=== PATIENT | female | born 1970 | race Caucasian/White ===

== ENCOUNTER 2017-04-02 20:04 | Observation (INO) | payer BC ==
[~2017-04-02] VITALS: Ht 160 cm; Wt 60.5 kg
[~2017-04-02 20:04] MED LIST: AZIT250T94 PO
[2017-04-02 20:14] VITALS: Ht 160 cm; Wt 60.5 kg
[2017-04-02] MEDS ORDERED: FER325 PO (22:24)
[2017-04-02] MEDS ORDERED: MULTI PO (22:24)
[2017-04-02] MEDS ORDERED: CYAN50TA PO (22:25)
[2017-04-02 22:31] LABS: ADD SCAN DIFF NO
[2017-04-02 22:33] LABS: BASOPHILS % 0.2 % (0.0-2.0); EOSINOPHILS # 0.1 10^3/ul (0.0-0.5); EOSINOPHILS % 0.7 % (0.0-7.0); HEMATOCRIT 39.9 % (37.0-47.0); HEMOGLOBIN 12.8 g/dl (12.0-16.0); LYMPHOCYTES # 3.1 10^3/ul (0.8-2.9); LYMPHOCYTES % 32.7 % (15.0-51.0); MEAN CORPUSCULAR HEMOGLOBIN 29.1 pg (29.0-33.0); MEAN CORPUSCULAR HGB CONC 32.1 g/dl (32.0-37.0); MEAN CORPUSCULAR VOLUME 90.7 fl (82.0-101.0); MEAN PLATELET VOLUME 9.8 fl (7.4-10.4); MONOCYTE # 0.7 10^3/ul (0.3-0.9); NEUTROPHIL # 5.7 10^3/ul (1.6-7.5); NEUTROPHILS % 59.1 % (39.0-77.0); PLATELET COUNT 399 10^3/UL (140-415); RED CELL DISTRIBUTION WIDTH 13.8 % (11.5-14.5); WHITE BLOOD COUNT 9.6 10^3/ul (4.8-10.8)
[2017-04-02 22:46] LABS: INR 0.93; PROTIME 12.5 Sec (12.2-14.2)
[2017-04-02 22:47] LABS: PARTIAL THROMBOPLASTIN TIME 28.1 Sec (25.0-35.0)
[2017-04-02 22:52] LABS: ALBUMIN 4.5 g/dl (3.3-4.9); CHLORIDE 100 mmol/L (97-110); POTASSIUM 3.4 mmol/L (3.5-5.1); SODIUM 138 mmol/L (135-144)
[2017-04-02 22:54] LABS: CREATININE 0.79 mg/dl (0.44-1.00)
[2017-04-02 22:55] LABS: ALANINE AMINOTRANSFERASE 30 IU/L (13-69); ALBUMIN/GLOBULIN RATIO 1.28; ALKALINE PHOSPHATASE 78 IU/L (42-121); ANION GAP 14 (8-16); ASPARTATE AMINO TRANSFERASE 29 IU/L (15-46); BILIRUBIN,INDIRECT 0.5 mg/dl (0-1.1); BILIRUBIN,TOTAL 0.5 mg/dl (0.2-1.3); BLOOD UREA NITROGEN 11 mg/dl (7-20); CARBON DIOXIDE 27 mmol/L (21-31); GLUCOSE 97 mg/dl (70-220)
[2017-04-02 23:04] LABS: B-TYPE NATRIURETIC PEPTIDE 67 PG/ML (0-125)
[2017-04-02 23:08] LABS: TROPONIN-I < 0.012 ng/ml (0.00-0.12)
[2017-04-03] VITALS (9 sets, daily range): BP systolic 107–134; BP diastolic 56–76; PULSE 58–77; RESP 12–18; TEMP 98.7
--- NOTE | 2017-04-03 00:32 | RADRPT ---
PROCEDURE: Portable chest x-ray. CLINICAL INDICATION: Chest pain. TECHNIQUE: Portable AP view of the chest. COMPARISON: 08/31/2016. FINDINGS: No pulmonary edema or conolidation is identified. The cardiac silhouette is magnified. No pleural effusion is seen. There is no pneumothorax. IMPRESSION: 1. No evidence of acute cardiopulmonary disease. RPTAT: HTAR .Rudy Yarbrough MD, MD Date Time Electronically viewed and signed by .Rudy Yarbrough MD, on 04/03/2017 00:32 .R/
--- NOTE | 2017-04-03 00:52 | ERA ---
ER Documentation Chief Complaint Date/Time DATE: 04/03/17 TIME: 00:51 Chief Complaint chest pain x 3 weeks HPI This a 47 reveals a chest pain over the past 2-3 weeks. It got bad today with some numbness and tingling in her left arm. No fevers no chills. No anxiety. No palpitations. No other current complaints. Pain is mild to moderate intensity, pressure-like with electric-like sensations on her left arm. ROS All systems reviewed and are negative except as per history of present illness. Medications Home Meds Reported Medications Cyanocobalamin* (Vitamin B-12*) 50 Mcg Tablet, 50 MCG PO DAILY, TAB 04/02/17 Ferrous Sulfate* (Ferrous Sulfate*) 325 Mg Tabec, 325 MG PO DAILY, TAB 04/02/17 Multivitamins* (Theragran*) 1 Tab Tab, 1 TAB PO DAILY, TAB 04/02/17 Discontinued Scripts Azithromycin* (Zithromax*) 250 Mg Tablet, 250 MG PO .ZPACK DIRECTED, #6 TAB TAKE 500 MG (2 TABS) THE FIRST DAY THEN 250 MG (1 TAB) DAYS 2-5 Prov:GEOFFREY PRAJAPATI PA-C 08/31/16 Allergies Allergies: Coded Allergies: morphine (Verified Allergy, Unknown, 04/02/17) PMhx/Soc History of Surgery: No Anesthesia Reaction: No Hx Neurological Disorder: No Hx Respiratory Disorders: No Hx Cardiac Disorders: No Hx Psychiatric Problems: No Hx Miscellaneous Medical Probl: No Hx Alcohol Use: No Hx Substance Use: No Hx Tobacco Use: No Smoking Status: Never smoker Physical Exam Vitals Vital Signs Date Time Temp Pulse Resp B/P Pulse Ox O2 Delivery O2 Flow Rate FiO2 04/02/17 23:59 70 13 150/76 100 Nasal Cannula 2.0 04/02/17 22:38 Nasal Cannula 2 04/02/17 22:13 98.7 64 12 135/76 100 Room Air 04/02/17 20:14 99.2 77 20 135/79 99 Physical Exam Const: [] Head: Atraumatic Eyes: Normal Conjunctiva ENT: Normal External Ears, Nose and Mouth. Neck: Full range of motion..~ No meningismus. Resp: Clear to auscultation bilaterally Cardio: Regular rate and rhythm, no murmurs Abd: Soft, non tender, non distended. Normal bowel sounds Skin: No petechiae or rashes Back: No midline or flank tenderness Ext: No cyanosis, or edema Neur: Awake and alert Psych: Normal Mood and Affect Result Diagram: 04/02/17219904/02/172199 Results 24 hrs Laboratory Tests Test 04/02/17 22:00 White Blood Count 9.610^3/ul Red Blood Count 4.4010^6/ul Hemoglobin 12.8g/dl Hematocrit 39.9% Mean Corpuscular Volume 90.7fl Mean Corpuscular Hemoglobin 29.1pg Mean Corpuscular Hemoglobin Concent 32.1g/dl Red Cell Distribution Width 13.8% Platelet Count 06205^3/UL Mean Platelet Volume 9.8fl Neutrophils % 59.1% Lymphocytes % 32.7% Monocytes % 7.0% Eosinophils % 0.7% Basophils % 0.2% Nucleated Red Blood Cells % 0.0/100WBC Neutrophils # 5.710^3/ul Lymphocytes # 3.110^3/ul Monocytes # 0.710^3/ul Eosinophils # 0.110^3/ul Basophils # 0.010^3/ul Nucleated Red Blood Cells # 0.010^3/ul Prothrombin Time 12.5Sec Prothrombin Time Ratio 1.0 INR International Normalized Ratio 0.93 Activated Partial Thromboplast Time 28.1Sec Sodium Level 138mmol/L Potassium Level 3.4mmol/L Chloride Level 100mmol/L Carbon Dioxide Level 27mmol/L Anion Gap 14 Blood Urea Nitrogen 11mg/dl Creatinine 0.79mg/dl Glucose Level 97mg/dl Calcium Level 9.0mg/dl Total Bilirubin 0.5mg/dl Direct Bilirubin 0.00mg/dl Indirect Bilirubin 0.5mg/dl Aspartate Amino Transf (AST/SGOT) 29IU/L Alanine Aminotransferase (ALT/SGPT) 30IU/L Alkaline Phosphatase 78IU/L Troponin I < 0.012ng/ml B-Type Natriuretic Peptide 67PG/ML Total Protein 8.0g/dl Albumin 4.5g/dl Globulin 3.50g/dl Albumin/Globulin Ratio 1.28 Procedures/MDM EKG: Rate/Rhythm: [Normal Sinus Rhythm] QRS, ST, T-waves: [No changes consistent w/ acute ischemia] Impression: [No evidence of ischemia or arrhythmia] Chest X-ray 1V Interpreted by me: Soft Tissue: No acute abnormalities Bones: No acute abnormalities Mediastinum/Cardiac Silhouette/Lungs: [No acute abnormalities] Patient's symptoms are concerning for cardiac cause will require inpatient workup and continuous monitoring. Further w/u for ischemia, arrhythmia, PE or dissection will be deferred to the inpatient team. Accepting Care Team: Current data and ongoing care discussed. Time: 1 AM Primary Provider: Hospitalist Consulting: [XOXOXO] Outstanding Data: none Departure Diagnosis: Primary Impression: Chest pain Qualified Code: I20.9 - Chest pain due to myocardial ischemia, unspecified ischemic chest pain type Condition: Serious ANTOINETTE MAHONEY April 03, 2017 00:52
[2017-04-03] MEDS ORDERED: NACL 0.9% 3 ML SYG IV SCH (03:30)
[2017-04-03] MEDS ORDERED: NITROGLYCERIN (SL) 0.4 MG TAB SL PRN (03:30)
[2017-04-03] MEDS ORDERED: ONDANSETRON 4 MG INJ IV PRN (03:30)
[2017-04-03] MEDS ORDERED: ACETAMINOPHEN 325 MG TAB PO PRN (03:30)
--- NOTE | 2017-04-03 03:54 | HP ---
Date/Time of Note Date/Time of Note DATE: 04/03/17 TIME: 03:28 Assessment/Plan VTE Prophylaxis VTE Prophylaxis Intervention: ambulation Lines/Catheters IV C[facility]ter Type (from [facility]): Peripheral IV Urinary Cath still in place: No Assessment/Plan Chief Complaint/Hosp Course This is a 47-year-old female being admitted to the telemetry floor for: #1 chest pain: Rule out ACS. Patient also states she has been experienced in the chest pain while she sleeping. first set of troponins negative. Will trend troponins. EKG normal sinus rhythm with no overt ST segment abnormalities. Patient has been experiencing this chest pain for a few weeks and she would likely need a stress test. Consult cardiology. #2 anemia: Hemoglobin currently stable continue iron supplements and home medications #3 Anxiety: Though anxiety could also be causing chest pain at this time as the patient states that her chest pain has awoken her up at night as well I do feel that the chest pain needs to be investigated further cardiac workup. #4 hypokalemia: Potassium 3.4. We will replete and recheck a BMP in the a.m.. #5 DVT and GI prophylaxis, patient is ambulatory no DVT prophylaxis indicated, H2 coby Problems: HPI/ROS Admit Date/Time Admit Date/Time 04/03/2017 Hx of Present Illness This is a 47-year-old female coming in today for chest pain this been going on for a few weeks. Patient states that she has been having on and off chest pain that occurs at random times throughout the day. She states that yesterday she started having some shortness of breath and pain that radiated from her chest to down her left arm. Patient also states that she had some nausea vomiting and diarrhea. The pain was sharp in nature and on the left side of the chest. Denies any diaphoresis or lower extremity swelling. Does state that she did experience anxiety in the past and was being treated for approximately 3 years ago during her divorce but right now does not seem like that this pain is related to anxiety. Patient also states that at times the chest pain wakes her up from sleep Allergies: Morphine states that she developed hives and cannot breathe Medications: See CHET AMAYA Const: Negative for fever, chills, weight gain or weight loss, fatigue, or diaphoresis Eyes : No pain discharge or redness or change in visual acuity ENT: No pain, sore throat, congestion, congestion, dysphagia or discharge Respiratory: No shortness of breath, cough, sputum, wheezing, or pleuritic pain Cardiovascular: As indicated in the HPI, otherwise rest negative GI : no change in appetite, abdominal pain, nausea, vomiting, diarrhea, constipation, or change in the color his stool Genitourinary: No dysuria, hematuria, flank pain , discharge or CVA tenderness Musculoskeletal: No joint pain, back pain, neck pain, restricted range of motion in neck or joints Skin: No rash, bruising or hives Neuro: No headache, dizziness, syncope, seizure, focal weakness Endocrine: No polyuria, polydipsia, temperature intolerance Psych: No hallucination, depression, anxiety or suicidal ideation PMH/Family/Social Past Medical History Anemia, uterine cyst, anxiety Past Surgical History Past Surgical Hx: no surgical history Family History Significant Family History: hypertension Social History Smoke: None EtOH: Social drinker Smoking Status: Never smoker Drug Use: none Exam/Review of Systems Vital Signs Vitals Vital Signs Date Time Temp Pulse Resp B/P Pulse Ox O2 Delivery O2 Flow Rate FiO2 04/03/17 02:22 64 12 111/59 100 Nasal Cannula 2.0 04/02/17 22:13 98.7 Exam Exam General: Patient is lying in bed comfortably in no acute distress The patient is alert oriented -3 HEENT: Atraumatic, normocephalic. The pupils are equal, round and reactive. Extraocular motor are intact Neck: Supple with full range of motion. No rigidity or meningismus Chest: Tender to palpation of the left anterior chest wall Lungs: Clear to auscultation bilaterally no crackles rales or wheezing Heart: Normal S1-S2, Regular rhythm and rate. No murmur Abdomen: Soft , nontender, nondistended , bowel sounds are present. No guarding no rebound tenderness , No masses or organomegaly. No costovertebral temporal angle mass Extremities: Normal to inspection, no edema no cyanosis Neurologic: Normal mental status, speech normal, cranial nerves II through XII are intact, motor and sensory are intact, no focal weakness Additional Comments Chest x-ray No signs of any acute pulmonary disease Labs Result Diagram: 04/02/17219904/02/172199 JUVENCIO DAI April 03, 2017 03:38
[2017-04-03] MEDS ORDERED: POTASSIUM CHLORIDE (SR) 20 MEQ TAB PO ONE (03:59)
[2017-04-03] MEDS: FAMOTIDINE 20 MG TAB PO SCH ×2 (04:25→13:09)
[2017-04-03] MEDS: SOD CHLORIDE 0.9% 1,000 ML IV SCH ×2 (04:25→13:24)
[2017-04-03 05:53] LABS: CREATINE KINASE 82 IU/L (23-200)
[2017-04-03 06:46] LABS: CK-MB 0.82 ng/ml (0.0-2.4); TROPONIN-I < 0.012 ng/ml (0.00-0.12)
[2017-04-03] MEDS ORDERED: MULTIVITAMINS THERAPEUTIC TAB PO SCH (09:00)
[2017-04-03] MEDS ORDERED: CYANOCOBALAMIN 100 MCG TAB PO SCH (09:00)
[2017-04-03] MEDS ORDERED: FERROUS SULFATE (EC) 325 MG TAB PO SCH (09:00)
[2017-04-03 12:46] LABS: CREATINE KINASE 82 IU/L (23-200)
--- NOTE | 2017-04-03 12:57 | RADRPT ---
Echocardiogram Report Patient Name: GENTRY EDMONDS Gender: Female Date: 1970 Study Date: 03-Apr-2017 Director Summer Sessions: Location: 5559 Ref. Physician: JUVENCIO DAI Quality: Good Procedures: Transthoracic echocardiogram with complete 2D, M-Mode, and doppler examination. Indications: Chest Pain. 2D/M Mode Doppler Measurement Value Normal Ranges Measurement Value Normal Ranges LVIDd 2D 3.7 3.5 - 5.6 cm LVOT Peak Thony 1.1 m/sec LVIDs 2D 2.3 2.1 - 4.1 cm LVOT Peak PG 5.0 mmHg FS 2D 39.0 % MV E Peak Thony 0.8 m/sec LVPWd 2D 1.1 0.6 - 1.1 cm MV A Peak Thony 0.9 m/sec IVSd 2D 1.0 0.6 - 1.1 cm MV E/A 0.9 IVS/LVPW 2D 0.9 MV Decel Time 151 msec AoR Diam 2D 2.7 2.0 - 3.7 cm MV E/A 0.9 LA/Ao 2D 1 0 - 1 TR Peak Thony 2.5 m/sec EDV 2D 51.5 cm3 TR Peak PG 25.0 mmHg ESV 2D 11.7 cm3 RVSP 28.0 mmHg LA Dimen 2D 2.8 2.3 - 4.0 cm LVOT Diam 1.9 cm LVOT Area 2.8 cm2 Findings Left Ventricle: Normal left ventricular systolic function. Normal left ventricular cavity size. Normal left ventricular wall thickness. Ejection fraction is visually estimated at 60 %. Tissue Doppler/Mitral Doppler indices are consistent with impaired relaxation (Stage I diastolic dysfunction). Right Ventricle: Normal right ventricular size. Normal right ventricular systolic function. Left Atrium: The left atrium is normal in size. Right Atrium: The right atrium is normal in size. Mitral Valve: Mitral valve leaflets appear mildly thickened. Mild mitral annular calcification. Trace mitral regurgitation. Aortic Valve: Normal appearance of the aortic valve. No significant aortic stenosis or insufficiency. Tricuspid Valve: Normal appearance and function of the tricuspid valve with trace physiologic regurgitation. Estimated peak PA systolic pressure 28 mmHg. Pulmonic Valve: Normal pulmonic valve appearance. Pericardium: Normal pericardium with no significant pericardial effusion. Aorta: Normal aortic root. IVC: Normal size and normal respiratory collapse consistent with normal right atrial pressure. Conclusions Normal left ventricular systolic function. Normal left ventricular cavity size. Normal left ventricular wall thickness. Ejection fraction is visually estimated at 60 %. Tissue Doppler/Mitral Doppler indices are consistent with impaired relaxation (Stage I diastolic dysfunction). Normal right ventricular size. Normal right ventricular systolic function. The left atrium is normal in size. The right atrium is normal in size. No significant valvular stenosis or regurgitation seen. Normal pericardium with no significant pericardial effusion. Electronically Signed By: Kunal Milligan 03-Apr-2017 12:56:13 -0700 Patient Name: GENTRY EDMONDS Study Date: 03-Apr-2017 [id number]
[2017-04-03 12:59] LABS: CK-MB 0.69 ng/ml (0.0-2.4)
--- NOTE | 2017-04-03 13:11 | CONS ---
Date/Time of Note Date/Time of Note DATE: 04/03/17 TIME: 13:01 Assessment/Plan Assessment/Plan Additional Assessment/Plan Palpitation Anxiety Preserved ejection fraction Hypokalemia -Patient with intermittent episodes of palpitations. No arrhythmias seen on telemetry. Patient goes to the gym 4 times a week and does an hour and a half of cardiovascular and weightlifting activities without chest pain or shortness of breath or palpitations. Echocardiogram with preserved ejection fraction with no significant valvular abnormalities, ECG without any significant ischemic abnormalities. Will check TSH. If patient remains asymptomatic and no arrhythmias seen on telemetry, no further inpatient cardiac workup needed at the current time. Consultation Date/Type/Reason Admit Date/Time 04/03/2017 Type of Consultation: cv Reason for Consultation Palpitations and chest pain Hx of Present Illness This is a 47-year-old female with past medical history of anemia, anxiety who presents with multiple complaints. Patient states over the past few weeks, she has been having recurrent episodes of "fast heart rates". This could have been progressively or all of a sudden. These episodes last usually a few minutes. Not brought upon by activity and happen randomly. She denies exertional chest pain or shortness of breath. She does go to the gym approximately 4 times a week and does an hour and a half of cardiovascular and weightlifting without exertional chest pain, shortness of breath or palpitations. Yesterday, she had an episode of "fast heart rates" associated with shortness of breath, headache and anxiety. She also complained of numbness in her neck and left arm. The symptoms came about without activity. Because of the above, she became concerned and came to the emergency room for evaluation and care. She does complain of intermittent episodes of these "frequent heart rates" even while in the hospital but less since being admitted. She is overall feeling much better. 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 Exam/Review of Systems Vital Signs Vitals Vital Signs Date Time Temp Pulse Resp B/P Pulse Ox O2 Delivery O2 Flow Rate FiO2 04/03/17 12:39 65 04/03/17 12:33 98.7 18 134/71 99 04/03/17 07:17 Nasal Cannula 2.0 Intake and Output 04/02/17 04/02/17 04/03/17 15:00 23:00 07:00 Intake Total 150 ml Balance 150 ml Exam No apparent distress Constitutional: alert, oriented Head: normocephalic Neck: supple Respiratory: clear to auscultation, normal air movement Cardiovascular: other (S1-S2 heard, no murmurs appreciated), regular rate and rhythm Gastrointestinal: bowel sounds, non-tender, other (No guarding), soft Extremities: other (No edema or cyanosis) Results Result Diagram: 04/02/17219904/02/17 2200 Results 24 hrs Laboratory Tests Test 04/02/17 22:00 04/03/17 05:23 04/03/17 12:07 White Blood Count 9.6 Red Blood Count 4.40 Hemoglobin 12.8 Hematocrit 39.9 Mean Corpuscular Volume 90.7 Mean Corpuscular Hemoglobin 29.1 # Mean Corpuscular Hemoglobin Concent 32.1 Red Cell Distribution Width 13.8 # Platelet Count 399 Mean Platelet Volume 9.8 # Neutrophils % 59.1 Lymphocytes % 32.7 Monocytes % 7.0 Eosinophils % 0.7 Basophils % 0.2 Nucleated Red Blood Cells % 0.0 Neutrophils # 5.7 Lymphocytes # 3.1 H Monocytes # 0.7 Eosinophils # 0.1 Basophils # 0.0 Nucleated Red Blood Cells # 0.0 Prothrombin Time 12.5 Prothrombin Time Ratio 1.0 INR International Normalized Ratio 0.93 Activated Partial Thromboplast Time 28.1 Sodium Level 138 Potassium Level 3.4 L Chloride Level 100 Carbon Dioxide Level 27 Anion Gap 14 Blood Urea Nitrogen 11 Creatinine 0.79 Glucose Level 97 Calcium Level 9.0 Total Bilirubin 0.5 Direct Bilirubin 0.00 Indirect Bilirubin 0.5 Aspartate Amino Transf (AST/SGOT) 29 Alanine Aminotransferase (ALT/SGPT) 30 Alkaline Phosphatase 78 Troponin I < 0.012 < 0.012 Pending B-Type Natriuretic Peptide 67 Total Protein 8.0 Albumin 4.5 Globulin 3.50 H Albumin/Globulin Ratio 1.28 Creatine Kinase 82 82 Creatine Kinase Index 1.0 Pending Creatinine Kinase MB (Mass) 0.82 Pending Medications Medications Current Medications Sodium Chloride (NS) 1,000 ml @ 100 mls/hr Q10H IV Last administered on t 04:25; Admin Dose 100 MLS/HR; Start 04/03/17 at 03:24 Ondansetron HCl (Zofran Inj) 4 mg Q6H PRN IV NAUSEA AND/OR VOMITING; Start 04/03 at 03:30 Nitroglycerin (Nitroglycerin (Sl Tab) 0.4 Mg) 1 tab Q5M PRN SL CHEST PAIN; Start 04/03/17 at 03:30 Acetaminophen (Tylenol Tab) 650 mg Q6H PRN PO PAIN LEVEL 1-3 OR FEVER; Start at 03:30 Famotidine (Pepcid) 20 mg Q12 PO Last administered on 04/03/17 04:25; Admin Dose 20 MG; Start 04/03/17 at 03:30 Cyanocobalamin (Vitamin B12) 50 mcg DAILY PO ; Start 04/03/17 at 09:00 Ferrous Sulfate (Ferrous Sulfate (Ec)) 325 mg DAILY PO ; Start 04/03/17 at 09:00 Multivitamins Therapeutic (Theragran) 1 tab DAILY PO ; Start 04/03/17 at 09:00 Procedures Procedures ECG demonstrates sinus rhythm at 76 bpm, normal QRS duration, no significant ischemic STT wave abnormalities Kunal Milligan DO April 03, 2017 13:11
[2017-04-03 13:12] LABS: TROPONIN-I < 0.012 ng/ml (0.00-0.12)
--- NOTE | 2017-04-03 14:07 | PDOCDIS ---
Discharge Instructions DIAGNOSIS Discharge Diagnosis: Non cardiac chest pain / palpitations. CONDITION Patient Condition: Good HOME CARE INSTRUCTIONS: Diet Instructions: Regular ACTIVITY: Activity Restrictions: No Restrictions FOLLOW UP/APPOINTMENTS Appointments Primary care 1 week. VICTORINA RICH MD, [facility] April 03, 2017 14:07
--- NOTE | 2017-04-03 14:17 | PN ---
DATE: 04/03/2017 MEDICINE FOLLOWUP NOTE SUBJECTIVE: The patient remains stable this morning following admission. Denies any chest pain or palpitations. Currently undergoing an echocardiogram and cardiology recommendations. Initial EKG w as unremarkable. TSH was performed and is within normal limits. Echocardiogram was also performed and shows preserved ejection fraction and mild stage I diastolic dysfunction. IMPRESSION AND PLAN: Chest pain does not appear to be cardiac in origin in a patient who remains ot herwise active. Negative troponins with normal echocardiogram. The patient can likely be stable fo r discharge today. Dictated By: VICTORINA RICH MD SV/BETH Conf#: [id number] DID#: [id number]
--- NOTE | 2017-04-04 04:11 | DS ---
DATE OF ADMISSION: 04/03/2017 DATE OF DISCHARGE: 04/03/2017 DISCHARGE DIAGNOSES: Noncardiac chest pain. HOSPITAL COURSE: This is a pleasant 47-year-old lady with a several week history of intermittent ch est pain, central, with no radiation, some associated palpitations, occasional nausea with some diar chris. No family history of coronary artery disease. She had serial troponins which were unremarkab le, EKG which showed no acute ischemic changes, and an echocardiogram which demonstrated preserved e jection fraction with stage I diastolic dysfunction. The patient was cleared by Dr. Kunal Milligan for discharge. DISCHARGE MEDICATIONS: 1. Vitamin B12. 2. Ferrous sulfate 325 mg p.o. daily. CONDITION ON DISCHARGE: Stable. DIET: Regular. Dictated By: VICTORINA JUDGE/BETH Conf#: [id number] DID#: [id number]
== END 2017-04-03 16:50 | disposition home or self-care (01) ==
LOC: E/R 20:04 → MS4 04-03 03:42
PROVIDERS: ADMIT Family Medicine; ATTEND Family Medicine
DX: R07.9 Chest pain, unspecified (principal); F41.9 Anxiety disorder, unspecified; E87.6 Hypokalemia
CPT/HCPCS: 36415; 71010; 80053; 82550; 82553; 83880; 84443; 84484; 85025; 85610; 85730; 93005; 93306; J3420; J7030; Z7500; Z7502; Z7610; G0378

== ENCOUNTER 2017-04-26 06:06 | Day surgery (SDC) | payer BC ==
[2017-04-25 08:20] VITALS: BMI 23.7
[2017-04-26] VITALS (7 sets, daily range): BP systolic 119–132; BP diastolic 64–80; PULSE 74–98; RESP 16–20; Ht 154.9 cm; Wt 58.5 kg
[~2017-04-26] VITALS: Ht 154.9 cm; Wt 58.5 kg
[~2017-04-26 06:06] MED LIST changes: -AZIT250T94 PO; +CYAN50TA PO; +FER325 PO; +MULTI PO
--- NOTE | 2017-04-26 08:08 | HPN ---
Date/Time of Note Date/Time of Note DATE: 04/26/17 TIME: 08:07 Interval H&P Admission Note Pt. seen H&P reviewed: No system changes VALERIE ELI MD April 26, 2017 08:08
[2017-04-26] MEDS ORDERED: MIDAZOLAM 1 MG/ML 2 ML INJ ONE (08:21)
[2017-04-26] MEDS ORDERED: PROPOFOL 20 ML ONE (10:32)
[2017-04-26] MEDS ORDERED: ROCURONIUM 50 MG INJ ONE (10:32)
[2017-04-26] MEDS ORDERED: LIDOCAINE 2% (SDV) 5 ML INJ ONE (10:32)
[2017-04-26] MEDS ORDERED: CEFAZOLIN 1 GM INJ ONE (10:32)
[2017-04-26] MEDS ORDERED: ONDANSETRON 4 MG INJ ONE (10:36)
--- NOTE | 2017-05-01 02:36 | OPR ---
DATE OF OPERATION: 04/26/2017 PREOPERATIVE DIAGNOSES: 1. Uterine fibroid. 2. Abnormal uterine bleeding. 3. Submucosal uterine fibroid. POSTOPERATIVE DIAGNOSES: 1. Uterine fibroid. 2. Abnormal uterine bleeding. 3. Submucosal uterine fibroid. See pathological report. NAME OF OPERATION: Hysteroscopy, resection of submucosal fibroid. ANESTHESIA: General. ANESTHESIOLOGIST: Refer to the chart. EMERGENCY REGISTRAR: Yannick from [employer]. SURGEON: Sandy Suarez MD PROCEDURE: Under proper induction of general anesthesia, the patient was placed in dorsal lithotomy position. Perineal area and vagina wall were prepped and draped in usual aseptic manner. On inspe ction, external genitalia revealed no gross abnormality. Bimanual examination revealed uterus is sl ightly increased in size, firm in consistency. There was no palpable adnexal pathology. Weighted s peculum introduced and the cervix was identified, which was grasped with a single-tooth tenaculum, a nd uterus was sounded, which was 8 cm in depth. Os was dilated up to size 6, and the hysteroscope w as introduced, and the fundus was visualized along with the 2 ostia. There was a protruding mass on left upper lateral aspect from my position, so resector was inserted and shaving the lesion which w as slowly done, which takes a long time to grab it and at this point decided to do ____ resector, wh ich was inserted and took more than 1 hour to remove this fibroid which was separate from the base c ompletely, took more than hour to do the procedure because of the consistency of tissue. This was n ot able to be removed through the os even though the os was dilated more and trying to grab with ___ _ forceps and the packing forceps, which was not able to do it. At this point, after the multiple a ttempts to remove this piece of fibroid which was detached from the uterine wall and decided to leav e it because of tissue already lost on the connection to the supply and most likely that necrotize w ill be passed through the os. At this point, the hysteroscope was removed along with the resector a nd no bleeding noted, and procedure was completed, and the patient withstood procedure well, sent to the recovery room in stable condition. Dictated By: SANDY ARAUZ/BETH Conf#: [id number] [facility]#: [id number]
== END 2017-04-26 12:25 | disposition home or self-care (01) ==
LOC: SDS 06:06
PROVIDERS: ATTEND Obstetrics & Gynecology
DX: D25.0 Submucous leiomyoma of uterus (principal)
CPT/HCPCS: 58561; 84703; 87086; 88305; J0690; J2250; J2405; J3010; Z7512; Z7610

== ENCOUNTER 2017-09-11 08:30 | Emergency (ER) | payer BC ==
[~2017-09-11] VITALS: Ht 154.9 cm; Wt 60.0 kg
[2017-09-11 08:33] VITALS: Ht 154.9 cm; Wt 60.0 kg
[2017-09-11 09:37] LABS: BASOPHILS % 0.3 % (0.0-2.0); EOSINOPHILS # 0.1 10^3/ul (0.0-0.5); EOSINOPHILS % 0.7 % (0.0-7.0); HEMATOCRIT 41.4 % (37.0-47.0); HEMOGLOBIN 13.6 g/dl (12.0-16.0); LYMPHOCYTES # 1.8 10^3/ul (0.8-2.9); LYMPHOCYTES % 25.4 % (15.0-51.0); MEAN CORPUSCULAR HEMOGLOBIN 29.8 pg (29.0-33.0); MEAN CORPUSCULAR HGB CONC 32.9 g/dl (32.0-37.0); MEAN CORPUSCULAR VOLUME 90.8 fl (82.0-101.0); MEAN PLATELET VOLUME 9.7 fl (7.4-10.4); MONOCYTE # 0.5 10^3/ul (0.3-0.9); MONOCYTES % 7.1 % (0.0-11.0); NEUTROPHIL # 4.7 10^3/ul (1.6-7.5); NEUTROPHILS % 66.1 % (39.0-77.0); PLATELET COUNT 341 10^3/UL (140-415); RED BLOOD COUNT 4.56 10^6/ul (4.20-5.40); RED CELL DISTRIBUTION WIDTH 15.4 % (11.5-14.5)
[2017-09-11 09:58] LABS: CREATININE 0.74 mg/dl (0.44-1.00); POTASSIUM 4.6 mmol/L (3.5-5.1)
--- NOTE | 2017-09-11 10:07 | ERD ---
ER Documentation Chief Complaint Date/Time DATE: 09/11/17 TIME: 10:07 Chief Complaint fatigue x 1 week HPI 47-year-old female with a history of anemia presenting with complaints of generalized fatigue for the past week. She notices it mostly when she walks up a flight of stairs. She denies any active bleeding, melena, hematochezia. She has a history of severe anemia secondary to fibroid bleeding, however she had surgery for this. Her last menstrual period was about 2 weeks ago and was normal. She is taking iron supplementation daily. Otherwise she denies headache, chest pain, shortness of breath. She does occasionally get dizzy. No fevers or chills. No recent illnesses. ROS All systems reviewed and are negative except as per history of present illness. Medications Home Meds Reported Medications Cyanocobalamin* (Vitamin B-12*) 50 Mcg Tablet, 50 MCG PO DAILY, TAB 04/02/17 Ferrous Sulfate* (Ferrous Sulfate*) 325 Mg Tabec, 325 MG PO DAILY, TAB 04/02/17 Multivitamins* (Theragran*) 1 Tab Tab, 1 TAB PO DAILY, TAB 04/02/17 Allergies Allergies: Coded Allergies: iodine (Verified Allergy, Severe, HIVE FROM , 09/11/17) IV IODINE morphine (Verified Allergy, Unknown, 09/11/17) PMhx/Soc Medical and Surgical Hx: pt denies Surgical Hx History of Surgery: No Anesthesia Reaction: No Hx Neurological Disorder: No Hx Respiratory Disorders: No Hx Cardiac Disorders: No Hx Psychiatric Problems: No Hx Miscellaneous Medical Probl: No (ANXIETY) Hx Alcohol Use: Yes (SOCIALLY) Hx Substance Use: No Hx Tobacco Use: No Smoking Status: Never smoker FmHx Family History: No diabetes Physical Exam Vitals Vital Signs Date Time Temp Pulse Resp B/P Pulse Ox O2 Delivery O2 Flow Rate FiO2 09/11/17 10:57 98.1 72 19 127/67 100 Room Air 09/11/17 08:33 98.1 73 18 153/82 100 Physical Exam Const: Well-appearing, no apparent distress Head: Atraumatic Eyes: Normal Conjunctiva ENT: Normal External Ears, Nose and Mouth. Neck: Full range of motion..~ No meningismus. Resp: Clear to auscultation bilaterally Cardio: Regular rate and rhythm, no murmurs with 2+ distal pulses Abd: Soft, non tender, non distended. Normal bowel sounds Skin: No petechiae or rashes Back: No midline or flank tenderness Ext: No cyanosis, or edema Neur: Awake and alert Psych: Normal Mood and Affect Result Diagram: 09/11/1791909/11/1720 Results 24 hrs Laboratory Tests Test 09/11/17 09:20 White Blood Count 7.010^3/ul Red Blood Count 4.5610^6/ul Hemoglobin 13.6g/dl Hematocrit 41.4% Mean Corpuscular Volume 90.8fl Mean Corpuscular Hemoglobin 29.8pg Mean Corpuscular Hemoglobin Concent 32.9g/dl Red Cell Distribution Width 15.4% Platelet Count 37739^3/UL Mean Platelet Volume 9.7fl Neutrophils % 66.1% Lymphocytes % 25.4% Monocytes % 7.1% Eosinophils % 0.7% Basophils % 0.3% Nucleated Red Blood Cells % 0.0/100WBC Neutrophils # 4.710^3/ul Lymphocytes # 1.810^3/ul Monocytes # 0.510^3/ul Eosinophils # 0.110^3/ul Basophils # 0.010^3/ul Nucleated Red Blood Cells # 0.010^3/ul Sodium Level 140mmol/L Potassium Level 4.6mmol/L Chloride Level 105mmol/L Carbon Dioxide Level 27mmol/L Anion Gap 13 Blood Urea Nitrogen 19mg/dl Creatinine 0.74mg/dl Glucose Level 98mg/dl Calcium Level 9.0mg/dl Procedures/MDM EKG: Rate/Rhythm: Normal Sinus Rhythm QRS, ST, T-waves: Right axis deviation, no changes consistent w/ acute ischemia Impression: No evidence of ischemia or arrhythmia. Right axis deviation present on EKG from April 2017 CBC normal without evidence of anemia BMP normal MDM Patient is presenting with generalized fatigue with no other worrisome symptoms. There is no evidence of pneumonia. I have a low suspicion for ACS or pulmonary embolism. She is PERC negative. There is no evidence of sepsis. I believe the patient is stable for discharge at this time with close outpatient follow-up. I recommend a follow-up with her primary care physician in the next 1-2 days. Return precautions were given. Patient discharged in a stable condition. Departure Diagnosis: Primary Impression: Fatigue Fatigue type: unspecified Qualified Code: R53.83 - Fatigue, unspecified type Condition: Stable NATE FERMIN MD Sep 11, 2017 10:07
[2017-09-11 10:57] VITALS: BP 127/67; PULSE 72; RESP 19; TEMP 98.1
== END 2017-09-11 10:58 | disposition home or self-care (01) ==
LOC: FTE 08:30
DX: R53.83 Other fatigue (principal)
CPT/HCPCS: 80048; 85025; 93005; Z7502